=== PATIENT | female | born 1990 | race Caucasian/White ===

== ENCOUNTER 2017-05-02 04:26 | Observation (INO) | payer SELFPAY ==
[~2017-05-02] VITALS: Ht 165.1 cm; Wt 65.0 kg
[2017-05-02 04:31] VITALS: BP 146/89; PULSE 134; RESP 18; TEMP 98.7; O2SAT 100
[2017-05-02 04:38] VITALS: BP 133/69; PULSE 107; RESP 20; O2SAT 100
[2017-05-02] MEDS ORDERED: MORPHINE SULFATE 4 MG/ML INJ IV PUSH ONE (05:00)
[2017-05-02] MEDS ORDERED: DICYCLOMINE HCL 10 MG CAP PO ONE (05:00)
[2017-05-02] MEDS ORDERED: LIDOCAINE VISCOUS 2% SOLN 15 ML UDC PO ONE (05:00)
[2017-05-02] MEDS ORDERED: SODIUM CHLORIDE 0.9% FLUSH 10 ML FLUSH IV FLUSH PRN ×2 (05:00→09:30)
[2017-05-02] MEDS ORDERED: SODIUM CHLOR 0.9% 1000 ML INJ 1,000 ML IV SCH ×2 (05:00→10:30)
[2017-05-02] MEDS ORDERED: ONDANSETRON HCL 4 MG/2 ML VIAL IVP ONE (05:00)
[2017-05-02] MEDS ORDERED: ALUMINUM/MAGNESIUM/SIMETH 30 ML CUP PO ONE (05:00)
[2017-05-02 05:39] LABS: AUTOMATED NEUTROPHIL # 12.3 TH/MM3 (1.8-7.7); BASOPHIL # 0.1 TH/MM3 (0-0.2); BASOPHIL % 0.4 % (0.0-2.0); EOSINOPHIL # 0.3 TH/MM3 (0-0.4); EOSINOPHIL % 1.8 % (0.0-4.0); HEMATOCRIT 40.3 % (35.0-46.0); LYMPH % 17.5 % (9.0-44.0); LYMPHOCYTE # 2.9 TH/MM3 (1.0-4.8); MEAN CELL VOLUME 85.3 FL (80.0-100.0); MEAN CORPUSCULAR HEMOGLOBIN 29.7 PG (27.0-34.0); MEAN CORPUSCULAR HGB CONC 34.9 % (32.0-36.0); MEAN PLATELET VOLUME 8.1 FL (7.0-11.0); MONO % 6.3 % (0.0-8.0); PLATELET COUNT 300 TH/MM3 (150-450); RED BLOOD COUNT 4.72 MIL/MM3 (4.00-5.30); WHITE BLOOD COUNT 16.6 TH/MM3 (4.0-11.0)
[2017-05-02] MEDS ORDERED: IOHEXOL 350 MG/ML 10 ML VIAL (for RAD DIAG) IVCONTRAST ONE (05:45)
[2017-05-02 05:50] LABS: BILIRUBIN, URINE NEG (NEG); BLOOD, URINE TRACE (NEG); GLUCOSE,URINE NEG (NEG); KETONE, URINE NEG (NEG); MUCUS URINE FEW /lpf (OCC); NITRITE,URINE NEG (NEG); PH, URINE 5.5 (5.0-8.5); SQUAMOUS EPITHELIAL CELL URINE 1 /hpf (0-5); URINE COLOR YELLOW (YELLW/STRAW); URINE LEUKOCYTE ESTERASE TRACE (NEG)
--- NOTE | 2017-05-02 06:00 | RADRPT ---
EXAM DATE/TIME: 05/02/2017 05:42 [place] COMPARISON: No previous studies available for comparison. INDICATIONS : Umbillical abdomen pain. IV CONTRAST: 75 cc Omnipaque 350 (iohexol) IV ORAL CONTRAST: No oral contrast ingested. RADIATION DOSE: 7.50 CTDIvol (mGy) MEDICAL HISTORY : None SURGICAL HISTORY : None. ENCOUNTER: Initial ACUITY: 1 day PAIN SCALE: 7/10 LOCATION: Umbilical abdomen TECHNIQUE: Volumetric scanning of the abdomen and pelvis was performed. Using automated exposure control and ad justment of the mA and/or kV according to patient size, radiation dose was kept as low as reasonably achievable to obtain optimal diagnostic quality images. DICOM format image data is available electro nically for review and comparison. FINDINGS: LOWER LUNGS: The visualized lower lungs are clear. LIVER: Homogeneous density without lesion. There is no dilation of the biliary tree. No calcified gallston es. SPLEEN: Normal size without lesion. PANCREAS: Within normal limits. KIDNEYS: Normal in size and shape. There is no mass, stone or hydronephrosis. ADRENAL GLANDS: Within normal limits. VASCULAR: There is no aortic aneurysm. BOWEL/MESENTERY: Thick wall and mildly distended fluid-filled appendix seen, for example series 601 image 62 no absces s, perforation or obstruction. There is no free fluid. A few subcentimeter right lower quadrant mesen teric lymph nodes are present. ABDOMINAL WALL: Within normal limits. RETROPERITONEUM: There is no lymphadenopathy. BLADDER: No wall thickening or mass. REPRODUCTIVE: Within normal limits. INGUINAL: There is no lymphadenopathy or hernia. MUSCULOSKELETAL: Within normal limits for patient age. CONCLUSION: CT findings of early acute appendicitis in the proper clinical setting. No abscess, perforation or ot her acute complication. Ángel Irvin MD on May 02, 2017 at 5:56 Board Certified Radiologist. This report was verified electronically.
[2017-05-02 06:09] LABS: ALBUMIN 3.7 GM/DL (3.4-5.0); ALT (GPT) 20 U/L (10-53); AST (GOT) 19 U/L (15-37); BLOOD UREA NITROGEN 13 MG/DL (7-18); CALCIUM 9.5 MG/DL (8.5-10.1); CHLORIDE 103 MEQ/L (98-107); CREATININE 0.77 MG/DL (0.50-1.00); GLOMERULAR FILTRATION RATE 91 ML/MIN (>89); GLUCOSE,RANDOM 107 MG/DL (74-106); SODIUM (NA) 137 MEQ/L (136-145)
[2017-05-02 06:12] LABS: ALKALINE PHOSPHATASE 83 U/L (45-117); TOTAL BILIRUBIN ADULT 0.3 MG/DL (0.2-1.0); TOTAL PROTEIN 7.7 GM/DL (6.4-8.2)
--- NOTE | 2017-05-02 06:12 | PD ---
HPI Chief Complaint: Abdominal Pain Time Seen by Provider: 04:50 Travel History International Travel<30 days: No Contact w/Intl Traveler<30days: No Traveled to known affect area: No History of Present Illness HPI Patient is 26 years old. Over the last 10 hours approximately the patient has had increasing abdominal pain. Is now constant and of moderate severity. She denies fever. Anorexia is reported. Nausea is reported with no fever. No diarrhea. Last menstruation is now however pain is different in quality. Severity moderate. PFSH Past Medical History Immunizations Current: Yes Tetanus Vaccination: Unknown Influenza Vaccination: No ?: Unknown LMP: 05/02/17 Social History Alcohol Use: No Tobacco Use: No Substance Use: No Allergies-Medications (Allergen,Severity, Reaction): Coded Allergies: No Known Allergies (Unverified , 05/02/17) Reported Meds & Prescriptions Reported Meds & Active Scripts Active No Active Prescriptions or Reported Medications Review of Systems Except as stated in HPI: all other systems reviewed are Neg Physical Exam Narrative GENERAL: 26 yo F, WNWD, mild distress Vital Signs Date Time Temp Pulse Resp B/P (MAP) Pulse Ox O2 Delivery O2 Flow Rate FiO2 05/02/17 04:38 107 20 133/69 (90) 100 Room Air 05/02/17 04:31 98.7 134 18 146/89 (108) 100 SKIN: Warm and dry. HEAD: Atraumatic. Normocephalic. EYES: Pupils equal and round. No scleral icterus. No injection or drainage. ENT: No nasal bleeding or discharge. Mucous membranes pink and moist. NECK: Trachea midline. No JVD. CARDIOVASCULAR: Regular. Tachycardia. RESPIRATORY: No accessory muscle use. Clear to auscultation. Breath sounds equal bilaterally. GASTROINTESTINAL: Soft. Generalized tenderness present. NO peritonitis. MUSCULOSKELETAL: Extremities without clubbing, cyanosis, or edema. No obvious deformities. NEUROLOGICAL: Awake and alert. No obvious cranial nerve deficits. Motor grossly within normal limits. Five out of 5 muscle strength in the arms and legs. Normal speech. PSYCHIATRIC: Appropriate mood and affect; insight and judgment normal. Data Data Last Documented VS Vital Signs Date Time Temp Pulse Resp B/P (MAP) Pulse Ox O2 Delivery O2 Flow Rate FiO2 05/02/17 04:38 107 20 133/69 (90) 100 Room Air 05/02/17 04:31 98.7 Orders Orders Complete Blood Count With Diff (2/23/18 05:00) Comprehensive Metabolic Panel (05/02/17 05:00) Lipase (05/02/17 05:00) Urinalysis - C+S If Indicated (05/02/17 05:00) Ct Abd/Pel W Iv Contrast(Rout) (05/02/17 05:00) Iv Access Insert/Monitor (05/02/17 05:00) Ecg Monitoring (05/02/17 05:00) Oximetry (05/02/17 05:00) Morphine Inj (Morphine Inj) (05/02/17 05:00) Ondansetron Inj (Zofran Inj) (05/02/17 05:00) Sodium Chlor 0.9% 1000 Ml Inj (Ns 1000 M (05/02/17 05:00) Sodium Chloride 0.9% Flush (Ns Flush) (05/02/17 05:00) Dicyclomine (Bentyl) (05/02/17 05:00) Al-Mag Hy-Si 40-40-4 Mg/Ml Liq (Mag-Al P (05/02/17 05:00) Lidocaine 2% Viscous (Xylocaine 2% Visco (05/02/17 05:00) Iohexol 350 Inj (Omnipaque 350 Inj) (05/02/17 05:45) Labs Laboratory Tests Test 05/02/17 05:15 White Blood Count 16.6 TH/MM3 Red Blood Count 4.72 MIL/MM3 Hemoglobin 14.0 GM/DL Hematocrit 40.3 % Mean Corpuscular Volume 85.3 FL Mean Corpuscular Hemoglobin 29.7 PG Mean Corpuscular Hemoglobin Concent 34.9 % Red Cell Distribution Width 13.0 % Platelet Count 300 TH/MM3 Mean Platelet Volume 8.1 FL Neutrophils (%) (Auto) 74.0 % Lymphocytes (%) (Auto) 17.5 % Monocytes (%) (Auto) 6.3 % Eosinophils (%) (Auto) 1.8 % Basophils (%) (Auto) 0.4 % Neutrophils # (Auto) 12.3 TH/MM3 Lymphocytes # (Auto) 2.9 TH/MM3 Monocytes # (Auto) 1.0 TH/MM3 Eosinophils # (Auto) 0.3 TH/MM3 Basophils # (Auto) 0.1 TH/MM3 CBC Comment DIFF FINAL Differential Comment Urine Color YELLOW Urine Turbidity CLEAR Urine pH 5.5 Urine Specific [place] 1.021 Urine Protein NEG mg/dL Urine Glucose (UA) NEG mg/dL Urine Ketones NEG mg/dL Urine Occult Blood TRACE Urine Nitrite NEG Urine Bilirubin NEG Urine Urobilinogen LESS THAN 2.0 MG/DL Urine Leukocyte Esterase TRACE Urine RBC 1 /hpf Urine WBC 2 /hpf Urine Squamous Epithelial Cells 1 /hpf Urine Mucus FEW /lpf Microscopic Urinalysis Comment CULT NOT INDICATED MDM Medical Decision Making Medical Screen Exam Complete: Yes Emergency Medical Condition: Yes Differential Diagnosis Constipation, Gastritis, Acute Cholecystitis, Biliary Colic, Pancreatitis, GRIFFITHS , Hepatitis, Bowel Obstruction, Cystitis, Mesenteric Ischemia, AAA, Appendicitis , Renal Stone/Hydronephrosis, GERD, perforated viscous Narrative Course CBC & BMP Diagram 05/02/17 05:15 Albumin 3.7, Calcium Level 9.5, Aspartate Amino Transf (AST/SGOT) 19, Alanine Aminotransferase (ALT/SGPT) 20 CT scan abdomen pelvis: Early appendicitis d/w Dr Seth for general surgery Sepsis Criteria SIRS Criteria (2 or more): Heart rate over 90 Diagnosis Primary Impression: Acute appendicitis Qualified Codes: K35.80 - Unspecified acute appendicitis Admitting Information Admitting Physician Requests: Observation Scripts No Active Prescriptions or Reported Meds Sidney Butterfield MD May 02, 2017 06:12
[2017-05-02] MEDS ORDERED: ceFOXitin INJ 1 GM in SODIUM CHLORIDE 0.9% INJ 100 ML IV ONE (06:15)
[2017-05-02 08:34] VITALS: BP 108/60; PULSE 100; RESP 18; TEMP 98.2; O2SAT 96
[2017-05-02] MEDS ORDERED: MORPHINE SULFATE 2 MG/ML INJ IV PUSH PRN (09:30)
[2017-05-02] MEDS ORDERED: BUPIVACAINE/EPINEPHRINE 0.25% 50 ML VIAL ONE (10:54)
[2017-05-02] MEDS ORDERED: PIPERACIL-TAZO 3.375 GM PREMIX 50 ML IV SCH (11:00)
--- NOTE | 2017-05-02 11:30 | HHI.HP ---
cc: Maco Moreira MD HPI Service General Surgery Primary Care Physician No Primary Care Physician Admission Diagnosis Acute Appendicitis Chief Complaint: Acute onset of abdominal pain History of Present Illness This is a 26 year old female with no past medical history who awoke from sleep at 1:30AM with sudden onset of abdominal pain. She does report associated nausea without vomiting. She was in her usual state of health yesterday. She denies any sick contacts or recent travel. A CT abdomen pelvis was obtained which shows early acute appendicitis. She does have an elevated white blood cell count. She has been NPO. A General Surgery admission has been requested for laparoscopic appendectomy. Review of Systems Constitutional: DENIES: Fatigue, Change in appetite Endocrine: DENIES: Polydipsia, Polyuria, Polyphagia Eyes: DENIES: Eye inflammation, Eye pain Ears, nose, mouth, throat: DENIES: Hearing loss, Vertigo Respiratory: DENIES: Apneas, Cough Cardiovascular: DENIES: Chest pain Gastrointestinal: COMPLAINS OF: Abdominal pain, Nausea, DENIES: Vomiting Genitourinary: DENIES: Urinary frequency Musculoskeletal: DENIES: Joint pain Integumentary: DENIES: Abnormal pigmentation Hematologic/lymphatic: DENIES: Bruising Immunologic/allergic: DENIES: Eczema Neurologic: DENIES: Headache, Localized weakness Psychiatric: DENIES: Mood changes, Depression Past Family Social History Past Medical History None Past Surgical History Tonsillectomy Reported Medications control Allergies: Coded Allergies: No Known Allergies (Unverified , 05/02/17) Active Ordered Medications Current Medications Medications (Trade) Dose Ordered Sig/Lima Route Start Time Stop Time Status Last Admin (NS Flush) 2 ml BID IV FLUSH 05/02/17 21:00 (NS Flush) 2 ml UNSCH PRN IV FLUSH 05/02/17 09:30 Sodium Chloride 1,000 ml @ 125 mls/hr Q8H IV 05/02/17 10:30 05/02/17 10:15 Piperacillin Sod/ Tazobactam Sod 50 ml @ 100 mls/hr Q8H IV 05/02/17 11:00 05/02/17 10:15 (Morphine Inj) 2 mg Q3H PRN IV PUSH 05/02/17 09:30 05/02/17 10:14 Family History Noncontributory Social History Denies tobacco use Denies ETOH use Denies illicit drug use Works as a still photographer. Physical Exam Vital Signs Vital Signs Date Time Temp Pulse Resp B/P (MAP) Pulse Ox O2 Delivery O2 Flow Rate FiO2 05/02/17 08:34 98.2 100 18 108/60 (76) 96 05/02/17 06:55 05/02/17 04:38 107 20 133/69 (90) 100 Room Air 05/02/17 04:31 98.7 134 18 146/89 (108) 100 Physical Exam GENERAL: Very pleasant 26 year old female resting in bed. SKIN: Warm and dry. HEAD: Atraumatic. Normocephalic. EYES: Pupils equal and round. No scleral icterus. No injection or drainage. ENT: No nasal bleeding or discharge. Mucous membranes pink and moist. NECK: Trachea midline. CARDIOVASCULAR: Regular rate and rhythm. RESPIRATORY: No accessory muscle use. Clear to auscultation. Breath sounds equal bilaterally. GASTROINTESTINAL: Abdomen soft, nondistended. RLQ and inferior to umbilicus abdominal pain with palpation. No visible hernias or scars. MUSCULOSKELETAL: Extremities without clubbing, cyanosis, or edema. No obvious deformities. NEUROLOGICAL: Awake and alert. No obvious cranial nerve deficits. Motor grossly within normal limits. Five out of 5 muscle strength in the arms and legs. Normal speech. PSYCHIATRIC: Appropriate mood and affect; insight and judgment normal. Laboratory Laboratory Tests Test 05/02/17 05:15 White Blood Count 16.6 Red Blood Count 4.72 Hemoglobin 14.0 Hematocrit 40.3 Mean Corpuscular Volume 85.3 Mean Corpuscular Hemoglobin 29.7 Mean Corpuscular Hemoglobin Concent 34.9 Red Cell Distribution Width 13.0 Platelet Count 300 Mean Platelet Volume 8.1 Neutrophils (%) (Auto) 74.0 Lymphocytes (%) (Auto) 17.5 Monocytes (%) (Auto) 6.3 Eosinophils (%) (Auto) 1.8 Basophils (%) (Auto) 0.4 Neutrophils # (Auto) 12.3 Lymphocytes # (Auto) 2.9 Monocytes # (Auto) 1.0 Eosinophils # (Auto) 0.3 Basophils # (Auto) 0.1 CBC Comment DIFF FINAL Differential Comment Urine Color YELLOW Urine Turbidity CLEAR Urine pH 5.5 Urine Specific [place] 1.021 Urine Protein NEG Urine Glucose (UA) NEG Urine Ketones NEG Urine Occult Blood TRACE Urine Nitrite NEG Urine Bilirubin NEG Urine Urobilinogen LESS THAN 2.0 Urine Leukocyte Esterase TRACE Urine RBC 1 Urine WBC 2 Urine Squamous Epithelial Cells 1 Urine Mucus FEW Microscopic Urinalysis Comment CULT NOT INDICATED Blood Urea Nitrogen 13 Creatinine 0.77 Random Glucose 107 Total Protein 7.7 Albumin 3.7 Calcium Level 9.5 Alkaline Phosphatase 83 Aspartate Amino Transf (AST/SGOT) 19 Alanine Aminotransferase (ALT/SGPT) 20 Total Bilirubin 0.3 Sodium Level 137 Potassium Level 3.4 Chloride Level 103 Carbon Dioxide Level 25.0 Anion Gap 9 Estimat Glomerular Filtration Rate 91 Lipase 110 Result Diagram: 05/02/1715 05/02/17 0515 Imaging Last 48 hours Impressions Abdomen/Pelvis CT 05/02/17 0500 Signed Impressions: Service Date/Time: Tuesday, May 02, 2017 05:42 - CONCLUSION: CT findings of early acute appendicitis in the proper clinical setting. No abscess, perforation or other acute complication. Ángel Irvin MD Caprini VTE Risk Assessment Caprini VTE Risk Assessment: No/Low Risk (score <= 1) VTE Pharm Contraindication: going to OR Caprini Risk Assessment Model Point Value = 1 Point Value = 2 Point Value = 3 Point Value = 5 Age 41-60 Minor surgery BMI > 25 kg/m2 Swollen legs Varicose veins or History of unexplained or recurrent spontaneous Oral contraceptives or hormone replacement Sepsis (< 1 month) Serious lung disease, including pneumonia (< 1 month) Abnormal pulmonary function Acute myocardial infarction Congestive heart failure (< 1 month) History of inflammatory bowel disease Medical patient at bed rest Age 61-74 Arthroscopic surgery Major open surgery (> 45 min) Laparoscopic surgery (> 45 min) Malignancy Confined to bed (> 72 hours) Immobilizing plaster cast Central venous access Age >= 75 History of VTE Family history of VTE Factor V Leiden Prothrombin [id number] Lupus anticoagulant Anticardiolipin antibodies Elevated serum homocysteine Heparin-induced thrombocytopenia Other congenital or acquired thrombophilia Stroke (< 1 month) Elective arthroplasty Hip, pelvis, or leg fracture Acute spinal cord injury (< 1 month) Prophylaxis Regimen Total Risk Factor Score Risk Level Prophylaxis Regimen 0-1 Low Early ambulation 2 Moderate Order ONE of the following: *Sequential Compression Device (SCD) *Heparin 5000 units SQ BID 3-4 Higher Order ONE of the following medications: *Heparin 5000 units SQ TID *Enoxaparin/Lovenox 40 mg SQ daily (WT < 150 kg, CrCl > 30 mL/min) *Enoxaparin/Lovenox 30 mg SQ daily (WT < 150 kg, CrCl > 10-29 mL/min) *Enoxaparin/Lovenox 30 mg SQ BID (WT < 150 kg, CrCl > 30 mL/min) AND/OR *Sequential Compression Device (SCD) 5 or more Highest Order ONE of the following medications: *Heparin 5000 units SQ TID (Preferred with Epidurals) *Enoxaparin/Lovenox 40 mg SQ daily (WT < 150 kg, CrCl > 30 mL/min) *Enoxaparin/Lovenox 30 mg SQ daily (WT < 150 kg, CrCl > 10-29 mL/min) *Enoxaparin/Lovenox 30 mg SQ BID (WT < 150 kg, CrCl > 30 mL/min) AND *Sequential Compression Device (SCD) Assessment and Plan Assessment and Plan 26 year old female with early acute appendicitis -NPO -IVF -IV antibiotics -Obtain consents -All questions about procedure were answered -The OR has been notified and awaiting time PATIENT SEEN AND EVALUATED IN HOLDING AREA. DISCUSSED FINDINGS W PATIENT AND RHEUMATOLOGY NURSE. SHE IS AGREEABLE TO IMMEDIATE LAPAROSCOPY AND APPENDECTOMY. OR AVAILABLE NOW. WILL PROCEED MACO MOREIRA MD FACS Discussed Condition With Dr. Attila Curry. Mercedes Arias RHEUMATOLOGY NURSE/Appliance Line Assembler RHEUMATOLOGY NURSE May 02, 2017 11:30 Maco Moreira MD May 06, 2017 08:39
[2017-05-02 11:32] VITALS: BP 112/62; PULSE 100; RESP 18; TEMP 97.9; O2SAT 96
[2017-05-02] MEDS ORDERED: GLYCOPYRROLATE 1 MG/5 ML SYRINGE IV PUSH ONE (12:00)
[2017-05-02] MEDS ORDERED: DEXAMETHASONE SOD PHOS 4 MG/ML VIAL IV ONE (12:00)
[2017-05-02] MEDS ORDERED: ROCURONIUM INJ 50 MG/5 ML SYRINGE IV PUSH ONE (12:00)
[2017-05-02] MEDS ORDERED: KETOROLAC TROMETHAMINE 30 MG/ML (IVP) VIAL IV PUSH ONE (12:00)
[2017-05-02] MEDS ORDERED: PROPOFOL 200 MG/20 ML AMP IV ONE (12:00)
[2017-05-02] MEDS ORDERED: ONDANSETRON HCL 4 MG/2 ML VIAL IV ONE (12:00)
[2017-05-02] MEDS ORDERED: NEOSTIGMINE 5 MG/5 ML SYRINGE IV PUSH ONE (12:00)
[2017-05-02] MEDS ORDERED: LIDOCAINE HCL 1% PF 5 ML SYRINGE OTHER ONE (12:00)
[2017-05-02] MEDS ORDERED: ACETAMINOPHEN 1000 MG/100 ML 100 ML IV ONE (12:48)
[2017-05-02] MEDS ORDERED: fentaNYL CITRATE 250 MCG/5 ML AMP ONE (12:48)
[2017-05-02] MEDS ORDERED: METOPROLOL TARTRATE 25 MG TAB PO PRN (13:30)
[2017-05-02] MEDS ORDERED: CHLORHEXIDINE GLUCONATE 2 % 1 PACK (2 CLOTHS) TOPICAL PRN (13:30)
[2017-05-02] MEDS ORDERED: LACTATED RINGER'S 1000 ML IV PRN (13:30)
[2017-05-02] MEDS ORDERED: SODIUM CHLORID 0.9% 500 ML IV PRN (13:30)
[2017-05-02] MEDS ORDERED: POVIDONE IODINE 5% (ANTISEPSIS KIT) 4 APPLICATIONS EACH NARE PRN (13:30)
[2017-05-02] MEDS ORDERED: DO NOT ADM ANY ANTICOAGULANT DRUGS PRN (14:11)
[2017-05-02] MEDS ORDERED: MIDAZOLAM HCL 2 MG/2 ML VIAL ONE (14:16)
[2017-05-02] MEDS ORDERED: *morphine SULFATE 4 MG/ML PERIprocedure ONLY ONE (14:56)
[2017-05-02] MEDS ORDERED: *ONDANSETRON 4 MG VIAL PERIprocedural Use ONLY ONE (15:16)
[2017-05-02] MEDS ORDERED: PROMETHAZINE INJ 25 MG/ML VIAL ONE (15:54)
[2017-05-02 16:30] VITALS: BP 121/73; PULSE 83; RESP 18; TEMP 98; O2SAT 98
[2017-05-02] MEDS ORDERED: SODIUM CHLORIDE 0.9% FLUSH 10 ML FLUSH IV FLUSH SCH (21:00)
--- NOTE | 2017-05-04 22:05 | MP ---
cc: MACO MOREIRA M.D. DATE OF SURGERY 05/02/2017 PREOPERATIVE DIAGNOSIS Acute appendicitis. POSTOPERATIVE DIAGNOSIS Acute appendicitis. PROCEDURE PERFORMED Laparoscopic appendectomy. SURGEON Maco Moreira MD ANESTHESIA General endotracheal COMPLICATIONS None INDICATION FOR THE PROCEDURE Ms. Ruvalcaba is a pleasant 26-year-old female who reports acute onset abdominal pain early this morning. She had associated nausea and vomiting. She was concerned because the pain persisted and worsened. She came to the emergency room early this morning where she was seen and evaluated and worked up and found to have acute appendicitis. General surgery consultation was made with Dr. Seth who was unavailable. I then came to see the patient and discussed the surgery with her. Risks and benefits of open laparoscopic appendectomy were discussed with her and she was agreeable. DETAILS OF AFTER MEALS The patient was identified, brought to the operating room and placed supine on the operating table. After adequate endotracheal anesthesia was achieved, the abdomen was prepped and draped in standard surgical fashion. Supraumbilical space was anesthetized with 0.25% Marcaine. A supraumbilical incision was made. Dissection was carried down to the subcutaneous tissue to the midline fascia. Midline fascia was incised sharply. A finger was then placed in the peritoneal cavity without difficulty. Blunt balloon trocar was inserted and the abdomen was insufflated to 15 mmHg using CO2 gas. Next two 5 mm trocars were placed in the lower midline under direct vision after anesthesiologist the skin and subcutaneous tissue with 0.25% Marcaine. The patient was then placed in Trendelenburg position. Attention was directed to the right lower quadrant where the cecum was seen going down to the pelvis. The cecum was elevated up out of pelvis. Immediately we encountered a thickened inflamed, edematous appendix. Appendix was carefully grasped. The appendiceal mesentery was then taken down with the harmonic scalpel to the level of cecal base. Once the cecal base was achieved the appendix was ligated with two 2-0 PDS Endoloops. Distal appendix was then transected with a harmonic scalpel, placed into an Endopouch bag and brought out through the supraumbilical port. Appendix was sent to pathology for analysis. Next the abdominal cavity rinsed out with about 200 mL of saline solution. Appendiceal stump was carefully inspected and there was no evidence of leak. Endoloops were tested and found to be intact without any evidence of displacement. The cecum was returned to the pelvis. The omentum was placed over the small and large bowel completely. Brief exploration of the abdominal cavity revealed no other gross abnormalities. All trocars were removed under direct vision. Midline fascia repaired with 0 Vicryl in a [id number] fashion. Skin was closed with 4-0 Vicryl. The patient tolerated the procedure well, was awakened, brought to recovery in stable condition. MD ARSLAN Bruno/LINNEA /2:06 PM /9:41 PM
== END 2017-05-02 14:00 | disposition home or self-care (01) ==
LOC: NEPE 04:26 → NEDA 06:16 → NEPGCP 06:38 → N07B 13:21
PROVIDERS: ADMIT Surgery; ATTEND Surgery
DX: K35.80 Unspecified acute appendicitis (principal); R63.0 Anorexia
CPT/HCPCS: 00840; 44970; 74177; 80053; 81001; 83690; 85025; 88304; 96361; 96365; 96366; 96375; 96376; 99285; G0378; J0131; J0694; J1100; J1885; J2250; J2270; J2405; J2543; J2550; J2710; J3010; J7030; J7120; Q9967